=== PATIENT | male | born 1950 | race Caucasian/White ===

== ENCOUNTER 2017-08-15 23:48 | Emergency (ER) | payer MEDICARE ==
[2017-08-16 00:44] VITALS: BP 130/76
[2017-08-16] MEDS ORDERED: KETOROLAC TROMETHAMINE INJ/PF 30 MG/1 ML SDV IV ONE (02:26)
[2017-08-16] MEDS ORDERED: MORPHINE SULFATE 10 MG/ML INJ IV ONE (02:26)
[2017-08-16] MEDS ORDERED: DIAZEPAM 2 MG TABLET PO ONE (02:27)
--- NOTE | 2017-08-16 02:30 | ER Document Report ---
ED Neck/Back Problem - General Chief Complaint: Back Pain Stated Complaint: NECK PAIN Time Seen by Provider: 08/16/17 02:20 Notes: The patient is a 66-year-old male, past medical history chronic thoracic back pain from "disc compression", presents with worsening upper back pain that is exacerbated by movement. He has had this in the past, but never this severe. He denies shortness of breath, injury, numbness, tingling, fevers, nausea, vomiting, abdominal pain, difficulty walking, chest pain or rash. TRAVEL OUTSIDE OF THE [place] IN LAST 30 DAYS: No - Related Data Allergies/Adverse Reactions: bacitracin [From Neosporin] Allergy (Verified 08/16/17 00:38) bacitracin zinc [From Neosporin] Allergy (Verified 08/16/17 00:38) gramicidin D [From Neosporin] Allergy (Verified 08/16/17 00:38) latex [Latex] Allergy (Verified 08/16/17 00:38) neomycin sulfate [From Neosporin] Allergy (Verified 08/16/17 00:38) polymyxin B [From Neosporin] Allergy (Verified 08/16/17 00:38) polymyxin B sulfate [From Neosporin] Allergy (Verified 08/16/17 00:38) Sulfa (Sulfonamide Antibiotics) Allergy (Verified 08/16/17 00:38) Past Medical History - General Information source: Patient - Social History Smoking Status: Unknown if Ever Smoked Family History: Reviewed & Not Pertinent Patient has suicidal ideation: No Patient has homicidal ideation: No - Past Medical History Cardiac Medical History: Reports: Hx Hypertension Renal/ Medical History: Denies: Hx Peritoneal Dialysis - Immunizations Hx Diphtheria, Pertussis, Tetanus Vaccination: No Review of Systems - Review of Systems Notes: REVIEW OF SYSTEMS: CONSTITUTIONAL: -fevers, -chills EENT: -eye pain, -difficulty swallowing, -nasal congestion CARDIOVASCULAR:-chest pain, -syncope. RESPIRATORY: -cough, -SOB GASTROINTESTINAL: -abdominal pain, -nausea, -vomiting, -diarrhea GENITOURINARY: -dysuria, -hematuria MUSCULOSKELETAL: +thoracic back pain, -neck pain SKIN: -rash or skin lesions. HEMATOLOGIC: -easy bruising or bleeding. LYMPHATIC: -swollen, enlarged glands. NEUROLOGICAL: -altered mental status or loss of consciousness, -headache, - neurologic symptoms PSYCHIATRIC: -anxiety, -depression. ALL OTHER SYSTEMS REVIEWED AND NEGATIVE. Physical Exam - Vital signs Vitals: Temp Pulse Resp BP Pulse Ox 98.4 F 89 20 130/76 H 98 08/16/17 00:39 08/16/17 00:39 08/16/17 00:39 08/16/17 00:39 08/16/17 00:39 - Notes Notes: PHYSICAL EXAMINATION: GENERAL: Well-appearing, well-nourished and in no acute distress. HEAD: Atraumatic, normocephalic. EYES: Pupils equal round and reactive to light, extraocular movements intact, sclera anicteric, conjunctiva are normal. ENT: nares patent, oropharynx clear without exudates. Moist mucous membranes. NECK: Normal range of motion, supple without lymphadenopathy LUNGS: Breath sounds clear to auscultation bilaterally and equal. No wheezes rales or rhonchi. HEART: Regular rate and rhythm without murmurs ABDOMEN: Soft, nontender, normoactive bowel sounds. No guarding, no rebound. No masses appreciated. EXTREMITIES: Normal range of motion, no pitting or edema. No cyanosis. Strong distal pulses. BACK: Tenderness over bilateral subscapular region, reproduces symptoms, no midline tenderness NEUROLOGICAL: Cranial nerves grossly intact. Normal speech, normal gait. Normal sensory and motor exams. PSYCH: Normal mood, normal affect. SKIN: Warm, Dry, normal turgor, no rashes or lesions noted. Course - Re-evaluation Re-evalutation: He has reproducible bilateral thoracic paraspinal and subscapularis muscles that is worse with movement. After pain control and muscle relaxers, patient feels much better. His EKG and troponin did not show signs of active ischemia. He has strong distal pulses and symptoms are atypical for aortic dissection at this time. Patient with mild leukocytosis, but no evidence of infection and no fever. Rest of labs are unremarkable. He follows with orthopedics for his chronic back pain and he has no red flag signs today. Will discharge patient home with anti-inflammatories, muscle relaxers and follow-up with his orthopedic doctor. - Vital Signs Vital signs: Temp Pulse Resp BP Pulse Ox 98.4 F 89 20 130/76 H 98 08/16/17 00:39 08/16/17 00:39 08/16/17 00:39 08/16/17 00:39 08/16/17 00:39 - Laboratory Result Diagrams: 08/16/17 03:00 08/16/17 03:00 Laboratory results interpreted by me: 08/16/17 08/16/17 03:00 03:00 WBC 12.6 H Lymphocytes % 12.6 L Absolute Neutrophils 9.6 H Sodium 131.6 L Chloride 94 L Direct Bilirubin 0.5 H - Diagnostic Test Radiology reviewed: Image reviewed, Reports reviewed Radiology results interpreted by me: CXR: NAD - EKG Interpretation by Me EKG shows normal: Sinus rhythm, [place], Intervals, QRS Complexes, ST-T Waves Rate: Normal Discharge - Discharge Clinical Impression: Back pain Qualifiers: Back pain location: thoracic back pain Chronicity: unspecified Back pain laterality: bilateral Qualified Code(s): M54.6 - Pain in thoracic spine Condition: Stable Disposition: HOME, SELF-CARE Additional Instructions: LOW BACK PAIN: Three out of every four people will have an episode of disabling back pain during their lifetime. Most commonly the pain is due to straining of the muscles and ligaments in the low back. Usual treatment includes: (1) Rest on a firm surface. Avoid lying on your stomach. (2) Ice pack the painful area. After a few days, gentle heat may be used intermittently to relax the area, or ice packs can be continued. (3) Medication may be needed -- muscle relaxers and antiinflammatory medicines are commonly used. (4) As the back improves, exercises are prescribed to strengthen the back and abdominal muscles. Your doctor will advise you on the proper care for your back at each stage in your recovery. You may be better in a few days -- or healing may take several weeks. If new symptoms of a "herniated disc" (radiation of pain, numbness, or tingling down the back of the leg or weakness in the leg) occur, you should be re-examined. Further testing may be necessary. PAIN MEDICATION INJECTION: You have received an injection of a pain medication. You should experience significant pain relief within 45 minutes. If this injection was a narcotic -- it will impair your judgement, slow your reaction time and make you sleepy (as well as relieve your pain). Narcotics also can cause nausea. You should not drive, work with machinery, or perform any task requiring mental alertness until all effects of the medication are gone -- six to eight hours. Do not take any alcohol, or sedatives, and do not take any other medication without checking with your physician. MUSCLE RELAXERS: Muscle relaxing medications are usually prescribed for acute muscle spasm or injury to the neck and back. They are often combined with antiinflammatory pain medication for increased relief. You may stop the muscle relaxer when the pain and stiffness have improved. Start the medication again if spasms recur. Muscle relaxers may cause drowsiness, especially with the first dose. Do not operate machinery or drive while under the effects of the medication. Most muscle relaxers last up to 24 hours. Do not combine the medication with alcohol. ICE PACKS: Apply ice packs frequently against the painful area. Many different schedules are recommended, such as "20 minutes on, 20 minutes off" or "one hour ice, two hours rest." If you need to work, you may need to go longer between ice treatments. You should plan to have the area ice packed AT LEAST one fourth of the time. The ice should be applied over the wrap, tape, or splint, or over a layer of cloth -- not directly against the skin. Some ice bags have a built-in cloth and can be put directly on the skin. WARM PACKS: After approximately two days, apply gentle heat (such as a heating pad or hot water bottle) for about 20 to 30 minutes about every two hours -- at least four times daily. Warmth and elevation will help you make a more rapid recovery , and will ease the pain considerably. Do not use HOT heat, and never apply heat for longer than 30 minutes. The continuous heat can invisibly damage skin and muscles -- even when no burn is seen on the surface. Damaged muscles can make you MORE sore. FOLLOW-UP CARE: If you have been referred to a physician for follow-up care, call the physician s office for an appointment as you were instructed or within the next two days. If you experience worsening or a significant change in your symptoms, notify the physician immediately or return to the Emergency Department at any time for re-evaluation. Prescriptions: Methocarbamol [Robaxin 500 mg Tablet] 500 mg PO Q4H PRN #15 tablet PRN Reason: Forms: Elevated Blood Pressure
--- NOTE | 2017-08-16 02:54 | RADIOLOGY REPORT (SQ) ---
EXAM DESCRIPTION: CHEST SINGLE VIEW CLINICAL HISTORY: 66 years, Male, chest pain COMPARISON: None. NUMBER OF VIEWS: 1 TECHNIQUE: Portable AP radiographic technique. LIMITATIONS: None. FINDINGS: Right basilar scar versus atelectasis. The lungs are otherwise clear. No pleural effusions or pneumothorax. Cardiac size and pulmonary vasculature are normal. Bones appear intact on this single view. IMPRESSION: Right basilar scar versus atelectasis. Otherwise, normal portable AP chest radiograph. 2011 [employer]- All Rights Reserved
[2017-08-16 03:20] LABS: ABSOLUTE BASOPHILS # (AUTO) 0.1 10^3/uL (0.0-0.2); ABSOLUTE LYMPHOCYTES (AUTO) 1.6 10^3/uL (0.5-4.7); ABSOLUTE MONOCYTES (AUTO) 1.3 10^3/uL (0.1-1.4); ABSOLUTE NEUT (AUTO) 9.6 10^3/uL (1.7-8.2); BASOPHILS % (AUTO) 0.4 % (0-2); EOSINOPHILS % (AUTO) 0.4 % (0-6); HEMATOCRIT 43.7 % (37.9-51.0); HEMOGLOBIN 15.3 g/dL (13.5-17.0); HGB HCT DIFFERENCE 2.2; LYMPHOCYTES % (AUTO) 12.6 % (13-45); MEAN CORPUSCULAR HGB CONC 35.1 g/dL (32.0-36.0); MEAN CORPUSCULAR VOLUME 94 fl (80-97); MONOCYTES % (AUTO) 10.1 % (3-13); RED BLOOD COUNT 4.65 10^6/uL (4.35-5.55); RED CELL DISTRIBUTION WIDTH 13.9 % (11.5-14.0); SEGMENTED NEUTROPHILS % (AUTO) 76.5 % (42-78); WHITE BLOOD COUNT 12.6 10^3/uL (4.0-10.5)
[2017-08-16 03:40] LABS: ALANINE AMINOTRANSFERASE 28 U/L (21-72); ALKALINE PHOSPHATASE 62 U/L (38-126); ANION GAP 15 (5-19); ASPARTATE AMINO TRANSFERASE 17 U/L (17-59); BILIRUBIN,DIRECT 0.5 mg/dL (0.0-0.4); BLOOD UREA NITROGEN 11 mg/dL (7-20); CALCIUM 9.4 mg/dL (8.4-10.2); CARBON DIOXIDE 23 mmol/L (22-30); CHLORIDE 94 mmol/L (98-107); CREATINE KINASE 83 U/L (55-170); CREATININE RESULT 0.81 mg/dL (0.52-1.25); GLUCOSE 93 mg/dL (75-110); LIPASE 35.9 U/L (23-300); POTASSIUM 3.9 mmol/L (3.6-5.0); SODIUM 131.6 mmol/L (137-145); TOTAL PROTEIN 7.1 g/dL (6.3-8.2)
[2017-08-16 03:57] LABS: ALBUMIN 4.1 g/dL (3.5-5.0)
--- NOTE | 2017-08-16 08:57 | EKG REPORT ---
SEVERITY:- BORDERLINE ECG - SINUS RHYTHM PROBABLE LEFT ATRIAL ABNORMALITY : Confirmed by: Ronna Lee MD 16-Aug-2017 08:57:27
== END 2017-08-16 04:19 | disposition home or self-care (01) ==
LOC: ER 23:48
DX: G89.29 Other chronic pain (principal); M54.6 Pain in thoracic spine; I10 Essential (primary) hypertension; D72.829 Elevated white blood cell count, unspecified; Z88.1 Allergy status to other antibiotic agents; Z88.3 Allergy status to other anti-infective agents; Z88.2 Allergy status to sulfonamides
CPT/HCPCS: 93005; 99284; 96374; 96375; 36415; 82550; 83690; 85025; 80053; 84484; 71010; 93010; A9270; J1885; J2270; J3490

== ENCOUNTER → 2017-11-15 | Outpatient (CLI) | payer MEDICARE ==
--- NOTE | 2017-11-16 17:22 | XCELERA REPORT ---
[address] [address] Lower Extremity Arterial Evaluation Name: PRINCE PADRON Age: 67 yrs Gender: Male : 1950 Patient Status: Outpatient Patient Location: Study Date: 11/15/2017 09:01 AM Procedure: A color flow and duplex scan of the lower extremity arteries was performed bilaterally with velocity and waveform anaylsis. Reason For Study: PVD Ordering Physician: CHRISTOPH HOOPER Performed By: Sherley Day Measurements and Calculations Right Left ATMOSPHERIC SCIENCES PROFESSOR PSV 71.7 123.2 cm/sec Prox PFA PSV -51.0 -270.8 cm/sec Prox SFA PSV 37.7 24.2 cm/sec Mid SFA PSV -32.2 -42.9 cm/sec Dist SFA PSV -21.3 cm/sec Prox Pop A PSV 22.6 11.8 cm/sec Dist Pop A PSV -21.2 cm/sec Dist ESTEFANÍA PSV 15.3 8.4 cm/sec Prox COGNOS DEVELOPER PSV 16.7 cm/sec Dist COGNOS DEVELOPER PSV 20.8 16.7 cm/sec Charlie Pedis PSV 15.5 14.3 cm/sec Right Side Arterial Evaluation Normal velocity and triphasic waveforms noted in the Common Femoral artery. Biphasic in the Femoral , monophasic with reduced velocity in the Popliteal and infrageniculate vessels. 50-99 % stenosis at the Femoral artery. Ankle Brachial index is 0.63. Left Side Arterial Evaluation Normal velocity and triphasic waveforms noted in the Common Femoral artery. Biphasic in the Femoral , monophasic with reduced velocity in the Popliteal and infrageniculate vessels. Area of stenosis with increased velocity in the Deep Femoral artery. 50-99 % stenosis at the Femoral artery. Ankle Brachial index is 0.63. Interpretation Summary Severe hemodynamically significant lesions in the bilateral lower extremities, on duplex imaging, at rest. : CHRISTOPH HOOPER > Christoph Hooper
== END ==
LOC: SP 08:35
PROVIDERS: ATTEND Surgery
DX: I73.9 Peripheral vascular disease, unspecified (principal)
CPT/HCPCS: 93925

== ENCOUNTER 2018-02-16 07:00 | Emergency (ER) | payer MEDICARE ==
[2018-02-16 07:05] VITALS: BP 131/82
[2018-02-16] MEDS ORDERED: OXYCODONE-ACETAMINOPHEN 5-325 MG TABLET PO ONE (07:59)
--- NOTE | 2018-02-16 08:48 | RADIOLOGY REPORT (SQ) ---
EXAM DESCRIPTION: KNEE RIGHT 3 VIEWS COMPLETED DATE/TIME: 02/16/2018 8:36 am REASON FOR STUDY: right knee pain COMPARISON: None. NUMBER OF VIEWS: Three views. TECHNIQUE: AP, lateral, and sunrise patella radiographic images acquired of the right knee. LIMITATIONS: None. FINDINGS: MINERALIZATION: Osteopenia. BONES: No acute fracture or dislocation. No worrisome bone lesions. Severe tricompartmental degener ative changes. JOINT: Small joint effusion. Dystrophic calcification projecting anterior to the femur on the latera l radiograph likely represent partially calcified intra-articular bodies. Similar findings are seen within the posterior joint space. SOFT TISSUES: Atherosclerotic vascular calcifications. No soft tissue swelling. No radio-opaque for eign body. OTHER: No other significant finding. IMPRESSION: Severe tricompartmental degenerative changes. No evidence of acute osseous injury. TECHNICAL DOCUMENTATION: JOB ID: [id number] [employer]- All Rights Reserved Reading location - IP/workstation name: [email or web address]
--- NOTE | 2018-02-16 08:57 | ER Document Report ---
ED Extremity Problem, Lower - General Chief Complaint: Knee Pain Stated Complaint: RIGHT KNEE PAIN AND SWELLING Time Seen by Provider: 02/16/18 07:34 Mode of Arrival: Wheelchair Information source: Patient Notes: Patient is a 67-year-old male who presents to the ER today for right knee pain 2 days. Patient states that it started in the middle of the night, without injury. He does admit to an injury to the right knee when he was a teenager but not since. He denies any bruising but admits to some swelling. He states the front and back of the knee hurt. He is able to bear weight but with pain. TRAVEL OUTSIDE OF THE [place] IN LAST 30 DAYS: No - Related Data Allergies/Adverse Reactions: bacitracin [From Neosporin] Allergy (Verified 08/16/17 00:38) bacitracin zinc [From Neosporin] Allergy (Verified 08/16/17 00:38) gramicidin D [From Neosporin] Allergy (Verified 08/16/17 00:38) latex [Latex] Allergy (Verified 08/16/17 00:38) neomycin sulfate [From Neosporin] Allergy (Verified 08/16/17 00:38) polymyxin B [From Neosporin] Allergy (Verified 08/16/17 00:38) polymyxin B sulfate [From Neosporin] Allergy (Verified 08/16/17 00:38) Sulfa (Sulfonamide Antibiotics) Allergy (Verified 08/16/17 00:38) Past Medical History - General Information source: Patient - Social History Smoking Status: Current Every Day Smoker Chew tobacco use (# tins/day): No Frequency of alcohol use: Rare Drug Abuse: None Family History: Reviewed & Not Pertinent Patient has suicidal ideation: No Patient has homicidal ideation: No - Past Medical History Cardiac Medical History: Reports: Hx Hypertension Renal/ Medical History: Denies: Hx Peritoneal Dialysis Past Surgical History: Reports: Hx Orthopedic Surgery - right knee - Immunizations Hx Diphtheria, Pertussis, Tetanus Vaccination: No Review of Systems - Review of Systems Constitutional: No symptoms reported EENT: No symptoms reported Cardiovascular: No symptoms reported Respiratory: No symptoms reported Gastrointestinal: No symptoms reported Genitourinary: No symptoms reported Male Genitourinary: No symptoms reported Musculoskeletal: See HPI Skin: No symptoms reported Hematologic/Lymphatic: No symptoms reported Neurological/Psychological: No symptoms reported Physical Exam - Vital signs Vitals: Temp Pulse Resp BP Pulse Ox 97.7 F 90 18 131/82 H 97 02/16/18 07:01 02/16/18 07:01 02/16/18 07:01 02/16/18 07:01 02/16/18 07:01 - Notes Notes: PHYSICAL EXAMINATION: GENERAL: Obviously in pain, but in no acute distress. HEAD: Atraumatic, normocephalic. EYES: Pupils equal round and reactive to light, extraocular movements intact, sclera anicteric, conjunctiva are normal. NECK: Normal range of motion, supple without lymphadenopathy LUNGS: CTAB and equal. No wheezes rales or rhonchi. HEART: Regular rate and rhythm without murmurs EXTREMITIES: Limited range of motion of the right knee secondary to pain, tender to anterior right knee inferior to the patella, and tender to posterior right knee, mild edema noted to anterior right knee, no Johnson's cyst noted, no pitting edema. No cyanosis. NEUROLOGICAL: Cranial nerves grossly intact. Normal sensory/motor exams. PSYCH: Normal mood, normal affect. SKIN: Warm, Dry, normal turgor, no rashes or lesions noted Course - Re-evaluation Re-evalutation: 02/16/18 08:55 X-ray of the right knee shows severe tricompartmental degenerative changes with small joint effusion, no other abnormality noted, no fracture. Patient will be placed in knee immobilizer brace and given crutches to keep weight off the knee , advised to elevate and keep ice on the knee. 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 Follow up with orthopedic doctor, call tomorrow to make followup appointment. Prescriptions: Naproxen [Naprosyn 375 Mg Tablet] 375 mg PO BID PRN #30 tablet PRN Reason: Oxycodone HCl/Acetaminophen [Percocet 5-325 mg Tablet] 1 - 2 tab PO Q4H PRN #15 tablet PRN Reason: Referrals: WILLIAN XIE MD [ACTIVE STAFF] - Follow up as needed
== END 2018-02-16 09:39 | disposition home or self-care (01) ==
LOC: ER 07:00
DX: M17.31 Unilateral post-traumatic osteoarthritis, right knee (principal); M25.461 Effusion, right knee; F17.200 Nicotine dependence, unspecified, uncomplicated; I10 Essential (primary) hypertension; Z91.040 Latex allergy status; Z88.3 Allergy status to other anti-infective agents; Z88.2 Allergy status to sulfonamides
CPT/HCPCS: 99283; 73562; A9270; L1830